=== PATIENT | male | born 1970 | race African-American/Black ===

== ENCOUNTER 2020-03-28 22:50 | Inpatient (IN) | payer SELFPAY ==
[~2020-03-28] VITALS: Ht 190.5 cm; Wt 97.5 kg
[2020-03-28] MEDS ORDERED: ALBUTEROL (0.083%) 2.5MG/3ML NEB HHN STA (22:57)
[2020-03-28] MEDS ORDERED: IPRATROPIUM BROMIDE (0.02%) 0.5MG/2.5ML NEB HHN STA (22:57)
[2020-03-28] MEDS ORDERED: FUROSEMIDE 40MG/4ML VIAL IV ONE (23:00)
[2020-03-28] MEDS ORDERED: METHYLPREDNISOLONE SOD SUCC 125 MG/2 ML VIAL IV STA (23:34)
[2020-03-28] MEDS ORDERED: NITROGLYCERIN 50MG PREMIX 250 ML IV ONE (23:34)
[2020-03-28] MEDS ORDERED: MAGNESIUM 2 G PREMIX 50 ML IV ONE (23:45)
[2020-03-28] MEDS ORDERED: TERBUTALINE SULFATE 1MG/ML VIAL SUBCUT ONE (23:45)
[2020-03-28 23:49] LABS: CHLORIDE 104 mEq/L (98-107)
[2020-03-28 23:51] LABS: BASOPHILS % 1.1 % (0.0-2.0); HEMATOCRIT. 46.8 % (42.0-52.0); HEMOGLOBIN. 15.2 g/dL (14.0-18.0); LYMPHOCYTES % 34.3 % (20.0-50.0); MEAN CORPUSCULAR HEMOGLOBIN 30.6 pg (28.0-32.0); MEAN CORPUSCULAR VOLUME 94.1 fL (80.0-94.0); MEAN PLATELET VOLUME 9.8 fl (7.4-10.4); MONOCYTES % 5.9 % (2.0-8.0); NEUTROPHILS % 53.7 % (40.0-76.0); PLATELET 247 x1000/uL (130-400); RED BLOOD CELL COUNT 4.98 mill/uL (4.7-6.1); RED CELL DISTRIBUTION WIDTH 15.2 % (11.6-14.6)
[2020-03-28 23:54] LABS: INR 0.9
[2020-03-29] VITALS (34 sets, daily range): BP systolic 139–191; BP diastolic 79–120
[2020-03-29] MEDS ORDERED: CEFTRIAXONE 1 G PREMIX 50 ML IV NR (00:30)
[2020-03-29] MEDS ORDERED: ASPIRIN 325MG EC TABLET PO NR (00:30)
[2020-03-29] MEDS ORDERED: FUROSEMIDE 40MG/4ML VIAL IVP ONE (01:00)
[2020-03-29 01:03] LABS: CLARITY URINE CLEAR (CLEAR); COLOR URINE YELLOW (YELLOW); KETONES URINE NEGATIVE (NEGATIVE); LEUKOCYTE ESTERASE URINE NEGATIVE (NEGATIVE); NITRITE URINE NEGATIVE (NEGATIVE); OCCULT BLOOD URINE 1+ (NEGATIVE); PH URINE 6.5 (4.5-8.0); PROTEIN URINE 3+ (NEGATIVE); SPECIFIC GRAVITY URINE 1.014 (1.005-1.030); UROBILINOGEN URINE 0.2 E.U./dL (0.2-1.0)
[2020-03-29 01:20] LABS: *AMPHETAMINES SCREEN URINE NEGATIVE (NEGATIVE); *BARBITURATES SCREEN URINE NEGATIVE (NEGATIVE); *BENZODIAZEPINES SCREEN URINE NEGATIVE (NEGATIVE); *COCAINE SCREEN URINE NEGATIVE (NEGATIVE); METHADONE URINE SCREEN NEGATIVE (NEGATIVE); OPIATES URINE SCREEN NEGATIVE (NEGATIVE)
[2020-03-29 01:21] LABS: CANNABINOID URINE SCREEN PRESUMTIVE POSITIVE (NEGATIVE); PHENCYCLIDINE URINE SCREEN NEGATIVE (NEGATIVE)
[2020-03-29] MEDS ORDERED: FUROSEMIDE 40MG/4ML VIAL IVP SCH (09:00)
[2020-03-29 09:34] LABS: BG CARBOXYHEMOGLOBIN 0.5 % (0.5-1.5); BG DEOXYHEMOGLOBIN 2.2 % (0.0-5.0); BG HCO3 ACT 28.2 mmol/L (22.0-26.0); BG METHEMOGLOBIN 0.6 % (0.0-1.5); BG OXYGEN SATURATION 97.8 % (92.0-98.5); BG OXYHEMOGLOBIN 96.7 % (94.0-97.0); BG PCO2 41.1 mmHg (35.0-45.0); BG PH 7.455 (7.350-7.450); BG PO2 101.6 mmHg (75.0-100.0); BG SAMPLE SITE RIGHT RADIAL; BG TOTAL HEMOGLOBIN 14.2 g/dL (12.0-18.0); BG VENT MODE MASK - NRB
[2020-03-29] MEDS: NITROGLYCERIN 50MG PREMIX 250 ML IV PRN ×4 (09:36→22:21)
[2020-03-29] MEDS ORDERED: AMLODIPINE 10MG TABLET PO SCH (10:00)
[2020-03-29 10:17] LABS: HEMATOCRIT. 43.5 % (42.0-52.0); HEMOGLOBIN. 14.5 g/dL (14.0-18.0); MEAN CORPUSCULAR HEMOGLOBIN 30.5 pg (28.0-32.0); MEAN CORPUSCULAR VOLUME 91.7 fL (80.0-94.0); MEAN PLATELET VOLUME 8.9 fl (7.4-10.4); PLATELET 212 x1000/uL (130-400); RED BLOOD CELL COUNT 4.74 mill/uL (4.7-6.1); RED CELL DISTRIBUTION WIDTH 14.9 % (11.6-14.6)
[2020-03-29 10:22] LABS: CHLORIDE 102 mEq/L (98-107)
[2020-03-29 10:48] LABS: PLATELET ESTIMATE NORMAL
[2020-03-29] MEDS ORDERED: POTASSIUM CHLORIDE 20MEQ TABLET SR PO SCH ×2 (11:15→15:00)
[2020-03-29] MEDS: SPIRONOLACTONE 50MG TABLET PO SCH ×2 (11:37→21:20)
[2020-03-29 12:11] LABS: HEPATITIS B SURFACE ANTIGEN NEGATIVE
[2020-03-29 12:41] LABS: HEPATITIS A AB IGM NEGATIVE (NEGATIVE)
[2020-03-29] MEDS ORDERED: LIDOCAINE HCL/PF 1% 2ML VIAL ONE (12:49)
[2020-03-29] MEDS: FUROSEMIDE 40MG/4ML VIAL IVP SCH (16:38)
[2020-03-29] MEDS ORDERED: HYDRALAZINE HCL 100MG TABLET PO NR (17:00)
[2020-03-29] MEDS ORDERED: DEXTROSE 50% WATER 50ML SYRINGE IV PRN (17:00)
[2020-03-29] MEDS ORDERED: ASPIRIN 81MG TABLET PO NR (17:00)
[2020-03-29] MEDS ORDERED: INSULIN LISPRO 100 UNITS/ML SUBCUT SCH (17:50)
[2020-03-29] MEDS: BLOOD SUGAR DIAGNOSTIC STRIP TEST SCH ×2 (18:15→21:20)
[2020-03-29] MEDS: INSULIN LISPRO 100 UNITS/ML SUBCUT SCH ×2 (18:15→21:00)
[2020-03-29] MEDS ORDERED: CEFTRIAXONE 1 G PREMIX 50 ML IV SCH (21:00)
[2020-03-29] MEDS: NIFEDIPINE XL 60MG TAB PO SCH (21:20)
[2020-03-29] MEDS: CEFTRIAXONE 1 G PREMIX 50 ML IV SCH (21:21)
[2020-03-30] VITALS (82 sets, daily range): BP systolic 129–185; BP diastolic 64–144
[2020-03-30] MEDS: NITROGLYCERIN 50MG PREMIX 250 ML IV PRN ×2 (02:34→08:37)
[2020-03-30 06:03] LABS: HEMATOCRIT. 40.7 % (42.0-52.0); HEMOGLOBIN. 13.8 g/dL (14.0-18.0); MEAN CORPUSCULAR HEMOGLOBIN 30.5 pg (28.0-32.0); MEAN PLATELET VOLUME 8.9 fl (7.4-10.4); PLATELET 213 x1000/uL (130-400); RED BLOOD CELL COUNT 4.52 mill/uL (4.7-6.1); RED CELL DISTRIBUTION WIDTH 14.6 % (11.6-14.6)
[2020-03-30 06:11] LABS: CHLORIDE 102 mEq/L (98-107)
[2020-03-30 06:17] LABS: PHOSPHORUS 2.5 mg/dL (2.5-4.9)
[2020-03-30] MEDS: FUROSEMIDE 40MG/4ML VIAL IVP SCH (07:09)
[2020-03-30] MEDS: INSULIN LISPRO 100 UNITS/ML SUBCUT SCH ×3 (08:20→21:00)
[2020-03-30] MEDS: BLOOD SUGAR DIAGNOSTIC STRIP TEST SCH ×4 (08:47→21:00)
[2020-03-30] MEDS: POTASSIUM CHLORIDE 20MEQ TABLET SR PO SCH ×2 (08:48→10:13)
[2020-03-30] MEDS: NIFEDIPINE XL 60MG TAB PO SCH ×2 (08:49→20:59)
[2020-03-30] MEDS: SPIRONOLACTONE 50MG TABLET PO SCH ×2 (08:49→21:01)
[2020-03-30] MEDS: ASPIRIN 81MG TABLET PO SCH (08:49)
[2020-03-30 09:00] LABS: PLATELET ESTIMATE NORMAL
[2020-03-30] MEDS ORDERED: HYDRALAZINE HCL 100MG TABLET PO SCH (09:00)
[2020-03-30] MEDS: MINOXIDIL 2.5MG TABLET PO SCH ×2 (10:13→21:00)
[2020-03-30] MEDS: CARVEDILOL 12.5MG TABLET PO SCH ×2 (10:13→21:00)
[2020-03-30] MEDS: AZITHROMYCIN 250 MG TABLET PO SCH (10:59)
[2020-03-30] MEDS: FAMOTIDINE 20MG TABLET PO SCH (14:16)
[2020-03-30] MEDS ORDERED: POTASSIUM CHLORIDE 20MEQ TABLET SR PO NR (16:00)
[2020-03-30] MEDS: CEFTRIAXONE 1 G PREMIX 50 ML IV SCH (20:58)
[2020-03-31] VITALS (47 sets, daily range): BP systolic 75–185; BP diastolic 28–120
[2020-03-31 05:51] LABS: BASOPHILS % 0.8 % (0.0-2.0); EOSINOPHILS % 0.7 % (0.0-5.0); HEMATOCRIT. 45.3 % (42.0-52.0); HEMOGLOBIN. 15.1 g/dL (14.0-18.0); LYMPHOCYTES % 12.9 % (20.0-50.0); MEAN CORPUSCULAR HEMOGLOBIN 30.4 pg (28.0-32.0); MEAN CORPUSCULAR VOLUME 91.4 fL (80.0-94.0); MONOCYTES % 8.5 % (2.0-8.0); NEUTROPHILS % 77.1 % (40.0-76.0); PLATELET 229 x1000/uL (130-400); RED BLOOD CELL COUNT 4.95 mill/uL (4.7-6.1); RED CELL DISTRIBUTION WIDTH 14.8 % (11.6-14.6)
[2020-03-31 05:58] LABS: CHLORIDE 105 mEq/L (98-107)
[2020-03-31 06:06] LABS: PHOSPHORUS 2.8 mg/dL (2.5-4.9)
[2020-03-31] MEDS: FAMOTIDINE 20MG TABLET PO SCH (09:00)
[2020-03-31] MEDS: ASPIRIN 81MG TABLET PO SCH (09:01)
[2020-03-31] MEDS: AZITHROMYCIN 250 MG TABLET PO SCH (09:01)
[2020-03-31] MEDS: CARVEDILOL 12.5MG TABLET PO SCH ×2 (09:02→20:44)
[2020-03-31] MEDS: MINOXIDIL 2.5MG TABLET PO SCH ×2 (09:02→20:45)
[2020-03-31] MEDS: NIFEDIPINE XL 60MG TAB PO SCH ×2 (09:11→21:00)
[2020-03-31] MEDS: SPIRONOLACTONE 50MG TABLET PO SCH ×2 (09:11→20:45)
[2020-03-31] MEDS ORDERED: CLONIDINE 0.1MG TABLET PO PRN (09:15)
[2020-03-31] MEDS: LOSARTAN POTASSIUM 50 MG TABLET PO SCH (11:35)
[2020-03-31] MEDS ORDERED: CLONIDINE 0.1MG TABLET PO SCH ×2 (14:00→21:00)
[2020-03-31] MEDS: HYDRALAZINE HCL 50MG TABLET PO SCH ×2 (14:06→22:10)
[2020-03-31] MEDS: CEFTRIAXONE 1 G PREMIX 50 ML IV SCH (20:46)
[2020-03-31] MEDS ORDERED: ALD50 PO (20:55)
[2020-03-31] MEDS ORDERED: FAMO20TA8 PO (20:55)
[2020-03-31] MEDS ORDERED: NIFE-32 PO (20:55)
[2020-03-31] MEDS ORDERED: MINO2.5T19 PO (20:55)
[2020-03-31] MEDS ORDERED: LOSA50TA3 PO (20:55)
[2020-03-31] MEDS ORDERED: ASPI-1160 PO (20:55)
[2020-03-31] MEDS ORDERED: HYDR-4135 PO (20:55)
[2020-04-01 00:18] VITALS: BP 130/61
[2020-04-01 04:00] VITALS: BP 117/83
[2020-04-01] MEDS: HYDRALAZINE HCL 50MG TABLET PO SCH ×3 (05:46→13:52)
[2020-04-01 06:51] LABS: BASOPHILS % 0.9 % (0.0-2.0); EOSINOPHILS % 1.5 % (0.0-5.0); HEMATOCRIT. 44.4 % (42.0-52.0); HEMOGLOBIN. 15.2 g/dL (14.0-18.0); LYMPHOCYTES % 21.3 % (20.0-50.0); MEAN CORPUSCULAR HEMOGLOBIN 30.9 pg (28.0-32.0); MEAN CORPUSCULAR VOLUME 90.5 fL (80.0-94.0); MEAN PLATELET VOLUME 9.3 fl (7.4-10.4); MONOCYTES % 8.6 % (2.0-8.0); NEUTROPHILS % 67.7 % (40.0-76.0); PLATELET 212 x1000/uL (130-400); RED BLOOD CELL COUNT 4.91 mill/uL (4.7-6.1); RED CELL DISTRIBUTION WIDTH 14.4 % (11.6-14.6)
[2020-04-01 07:05] LABS: PHOSPHORUS 3.9 mg/dL (2.5-4.9)
[2020-04-01 08:00] VITALS: BP 123/87
[2020-04-01] MEDS: AZITHROMYCIN 250 MG TABLET PO SCH (08:51)
[2020-04-01] MEDS: FAMOTIDINE 20MG TABLET PO SCH (08:51)
[2020-04-01] MEDS: SPIRONOLACTONE 50MG TABLET PO SCH (08:51)
[2020-04-01] MEDS: ASPIRIN 81MG TABLET PO SCH (08:51)
[2020-04-01] MEDS: LOSARTAN POTASSIUM 50 MG TABLET PO SCH (08:59)
[2020-04-01] MEDS: CARVEDILOL 12.5MG TABLET PO SCH (08:59)
[2020-04-01] MEDS: NIFEDIPINE XL 60MG TAB PO SCH (09:00)
[2020-04-01] MEDS ORDERED: POTASSIUM CHLORIDE 20MEQ TABLET SR PO SCH (09:00)
[2020-04-01 09:06] LABS: GLOMERULAR BASEMENT MEMB AB 15 units (0-20)
[2020-04-01 12:00] VITALS: BP 135/99
[2020-04-01 13:06] LABS: ATYPICAL P-ANCA <1:20 titer (Neg:<1:20); CYTOPLASMIC C-ANCA <1:20 titer (Neg:<1:20); PERINUCLEAR P-ANCA <1:20 titer (Neg:<1:20)
[2020-04-01 14:08] LABS: ANTI-MYELOPEROXIDASE AB < 9.0 U/mL (0.0-9.0); ANTI-PROTEINASE 3 ABS < 3.5 U/mL (0.0-3.5)
[2020-04-01 14:12] VITALS: BP 135/99
== END 2020-04-01 15:15 | disposition home or self-care (01) | DRG 194 ==
LOC: ER 22:50 → EDBEDREQSVC 03-29 09:14 → ENRESERV 03-29 13:54 → CVICU 03-29 16:03 → 5WST 04-01 01:34
PROVIDERS: ADMIT Family Medicine; ATTEND Family Medicine
PROC: 5A09357 Assistance with Respiratory Ventilation, Less than 24 Consecutive Hours, Continuous Positive Airway Pressure (ICD-10-PCS; principal; 2020-03-28)
DX: I13.0 Hypertensive heart and chronic kidney disease with heart failure and stage 1 through stage 4 chronic kidney disease, or unspecified chronic kidney disease (principal); J96.01 Acute respiratory failure with hypoxia; J18.9 Pneumonia, unspecified organism; E87.4 Mixed disorder of acid-base balance; E11.22 Type 2 diabetes mellitus with diabetic chronic kidney disease; I50.21 Acute systolic (congestive) heart failure; N17.9 Acute kidney failure, unspecified; I42.9 Cardiomyopathy, unspecified; E87.6 Hypokalemia; F12.90 Cannabis use, unspecified, uncomplicated; F17.210 Nicotine dependence, cigarettes, uncomplicated; I16.0 Hypertensive urgency; M19.90 Unspecified osteoarthritis, unspecified site; N18.9 Chronic kidney disease, unspecified; Z96.653 Presence of artificial knee joint, bilateral; E11.65 Type 2 diabetes mellitus with hyperglycemia; N05.9 Unspecified nephritic syndrome with unspecified morphologic changes; Z20.828 Contact with and (suspected) exposure to other viral communicable diseases; Z79.82 Long term (current) use of aspirin; Z79.899 Other long term (current) drug therapy; Z82.49 Family history of ischemic heart disease and other diseases of the circulatory system; Z83.3 Family history of diabetes mellitus; Z91.14 Patient's other noncompliance with medication regimen; Z84.1 Family history of disorders of kidney and ureter; Z91.19 Patient's noncompliance with other medical treatment and regimen
CPT/HCPCS: 36415; 36600; 71045; 71046; 80048; 80053; 80061; 80305; 81003; 82375; 82570; 82805; 82962; 83036; 83520; 83605; 83735; 83880; 84100; 84145; 84156; 84443; 84484; 85025; 86256; 86705; 86709; 86803; 87340; 93005; 93306; 93970; 99291; J0696; J1940; J2930; J3105; J3475; J3490; U0003-CS

== ENCOUNTER 2020-07-13 08:29 | Inpatient (IN) | payer MEDICAID, OTHER ==
[~2020-07-13] VITALS: Ht 193 cm; Wt 91.6 kg
[~2020-07-13 08:29] MED LIST: ALD50 PO; ASPI-1160 PO; FAMO20TA8 PO; HYDR-4135 PO; LOSA50TA3 PO; MINO2.5T19 PO; NIFE-32 PO
[2020-07-13] MEDS ORDERED: MORPHINE SULFATE 4 MG/ML CPJ (NOT FOR IM USE) IV STA (08:38)
[2020-07-13 09:31] LABS: BASOPHILS % 0.4 % (0.0-2.0); EOSINOPHILS % 1.6 % (0.0-5.0); HEMATOCRIT. 43.7 % (42.0-52.0); HEMOGLOBIN. 14.6 g/dL (14.0-18.0); LYMPHOCYTES % 11.5 % (20.0-50.0); MEAN CORPUSCULAR HEMOGLOBIN 30.5 pg (28.0-32.0); MEAN CORPUSCULAR VOLUME 91.3 fL (80.0-94.0); MONOCYTES % 6.4 % (2.0-8.0); NEUTROPHILS % 80.1 % (40.0-76.0); PLATELET 183 x1000/uL (130-400); RED BLOOD CELL COUNT 4.78 mill/uL (4.7-6.1); RED CELL DISTRIBUTION WIDTH 15.1 % (11.6-14.6)
[2020-07-13 09:34] LABS: CHLORIDE 104 mEq/L (98-107)
[2020-07-13 09:37] LABS: PROTHROMBIN TIME 10.9 sec (9.6-11.0)
[2020-07-13 10:13] LABS: CLARITY URINE CLEAR (CLEAR); COLOR URINE YELLOW (YELLOW); KETONES URINE NEGATIVE (NEGATIVE); LEUKOCYTE ESTERASE URINE NEGATIVE (NEGATIVE); NITRITE URINE NEGATIVE (NEGATIVE); OCCULT BLOOD URINE 1+ (NEGATIVE); PROTEIN URINE 3+ (NEGATIVE); SPECIFIC GRAVITY URINE 1.014 (1.005-1.030); UROBILINOGEN URINE 0.2 E.U./dL (0.2-1.0)
[2020-07-13] MEDS ORDERED: FAMOTIDINE 20MG/2ML VIAL IV STA (10:35)
[2020-07-13] MEDS ORDERED: MORPHINE SULFATE 4 MG/ML CPJ (NOT FOR IM USE) IV ONE (10:45)
[2020-07-13] MEDS ORDERED: LACTULOSE 20G/30ML UDC PO ONE (11:00)
[2020-07-13] MEDS ORDERED: POTASSIUM CHLORIDE 20MEQ TABLET SR PO ONE (11:00)
[2020-07-13] MEDS ORDERED: HYDRALAZINE HCL 25MG TABLET PO SCH (12:20)
[2020-07-13] MEDS ORDERED: HYDRALAZINE HCL 50MG TABLET PO ONE (12:30)
[2020-07-13] MEDS ORDERED: KETOROLAC 30MG/ML VIAL IV SCH (12:30)
[2020-07-13] MEDS ORDERED: KETOROLAC 30MG/ML VIAL IV ONE (12:30)
[2020-07-13] MEDS ORDERED: DOCUSATE SODIUM 100MG CAPSULE PO PRN (14:00)
[2020-07-13] MEDS ORDERED: IPRATROPIUM/ALBUTEROL 0.5-3(2.5)MG/3ML NEB NEB PRN (14:00)
[2020-07-13] MEDS ORDERED: ACETAMINOPHEN 325MG TABLET PO PRN ×2 (14:00)
[2020-07-13] MEDS ORDERED: GUAIFENESIN 200MG/10ML SUGAR FREE UDC PO PRN (14:00)
[2020-07-13] MEDS ORDERED: NITROGLYCERIN 0.4MG TABLET SL SL PRN (14:00)
[2020-07-13] MEDS ORDERED: ONDANSETRON HCL 4MG/2ML INJ IV PRN (14:00)
[2020-07-13] MEDS ORDERED: MAGNESIUM/ALUMINUM HYDROXIDE/SIMETHICONE 30ML UDC PO PRN (14:00)
[2020-07-13] MEDS ORDERED: POTASSIUM CHLORIDE 20MEQ TABLET SR PO SCH (14:00)
[2020-07-13] MEDS ORDERED: CLONIDINE 0.1MG TABLET PO PRN (14:00)
[2020-07-13] MEDS: HYDRALAZINE HCL 25MG TABLET PO SCH ×2 (15:33→23:45)
[2020-07-13] MEDS: ENOXAPARIN 40MG/0.4ML SYR SUBCUT SCH (15:34)
[2020-07-13] MEDS: MINOXIDIL 2.5MG TABLET PO SCH (16:46)
[2020-07-13] MEDS ORDERED: MINOXIDIL 2.5MG TABLET PO NR (18:25)
[2020-07-13] MEDS: CLONIDINE 0.2MG TABLET PO PRN (19:04)
[2020-07-13] MEDS: FUROSEMIDE 40MG/4ML VIAL IVP SCH (19:13)
[2020-07-13] MEDS: LACTULOSE 20G/30ML UDC PO SCH ×2 (20:00→23:45)
[2020-07-13] MEDS ORDERED: ZOLPIDEM TARTRATE 5MG TABLET PO PRN (21:00)
[2020-07-13] MEDS: METOPROLOL TARTRATE 25MG TABLET PO SCH (21:45)
[2020-07-13] MEDS: FAMOTIDINE 20MG TABLET PO SCH (21:45)
[2020-07-13] MEDS: ASCORBIC ACID 500 MG TABLET PO SCH (21:45)
[2020-07-13] MEDS: SPIRONOLACTONE 25MG TABLET PO SCH (21:45)
[2020-07-13 22:23] LABS: CREATINE KINASE MB FRACTION 15.2 ng/mL (0.5-3.6)
[2020-07-14] VITALS (7 sets, daily range): BP systolic 112–180; BP diastolic 71–90
[2020-07-14] MEDS: CLONIDINE 0.2MG TABLET PO PRN (01:15)
[2020-07-14] MEDS: LACTULOSE 20G/30ML UDC PO SCH ×6 (04:00→20:00)
[2020-07-14] MEDS: HYDRALAZINE HCL 25MG TABLET PO SCH ×3 (06:18→21:19)
[2020-07-14] MEDS: FUROSEMIDE 40MG/4ML VIAL IVP SCH (06:18)
[2020-07-14] MEDS: MINOXIDIL 2.5MG TABLET PO SCH (09:38)
[2020-07-14] MEDS: ZINC SULFATE 220 MG ( 50 ) CAPSULE PO SCH (09:39)
[2020-07-14] MEDS: SPIRONOLACTONE 25MG TABLET PO SCH ×2 (09:39→20:27)
[2020-07-14] MEDS: ASPIRIN 325MG EC TABLET PO SCH (09:39)
[2020-07-14] MEDS: METOPROLOL TARTRATE 25MG TABLET PO SCH (09:40)
[2020-07-14] MEDS: AMLODIPINE 10MG TABLET PO SCH (09:40)
[2020-07-14] MEDS: ASCORBIC ACID 500 MG TABLET PO SCH ×2 (09:40→20:27)
[2020-07-14 11:09] LABS: BASOPHILS % 0.3 % (0.0-2.0); EOSINOPHILS % 0.1 % (0.0-5.0); HEMATOCRIT. 42.2 % (42.0-52.0); LYMPHOCYTES % 8.8 % (20.0-50.0); MEAN CORPUSCULAR HEMOGLOBIN 30.2 pg (28.0-32.0); MEAN CORPUSCULAR VOLUME 90.8 fL (80.0-94.0); MEAN PLATELET VOLUME 8.5 fl (7.4-10.4); MONOCYTES % 10.1 % (2.0-8.0); NEUTROPHILS % 80.7 % (40.0-76.0); PLATELET 164 x1000/uL (130-400); RED BLOOD CELL COUNT 4.65 mill/uL (4.7-6.1); RED CELL DISTRIBUTION WIDTH 15.2 % (11.6-14.6)
[2020-07-14 11:16] LABS: CHLORIDE 101 mEq/L (98-107)
[2020-07-14 11:29] LABS: PHOSPHORUS 2.4 mg/dL (2.5-4.9)
[2020-07-14 11:31] LABS: CREATINE KINASE 764 IU/L (39-308)
[2020-07-14 11:34] LABS: CREATINE KINASE MB FRACTION 5.7 ng/mL (0.5-3.6)
[2020-07-14] MEDS: CARVEDILOL 12.5MG TABLET PO SCH ×2 (11:55→20:27)
[2020-07-14] MEDS: ENOXAPARIN 40MG/0.4ML SYR SUBCUT SCH (14:12)
[2020-07-14] MEDS: KETOROLAC 15MG/ML VIAL IV PRN (20:08)
[2020-07-14] MEDS: FAMOTIDINE 20MG TABLET PO SCH (20:27)
[2020-07-15] VITALS: BP 149/73
[2020-07-15 02:54] LABS: *AMPHETAMINES SCREEN URINE NEGATIVE (NEGATIVE); *BARBITURATES SCREEN URINE NEGATIVE (NEGATIVE); *BENZODIAZEPINES SCREEN URINE NEGATIVE (NEGATIVE); *COCAINE SCREEN URINE NEGATIVE (NEGATIVE)
[2020-07-15 02:55] LABS: CANNABINOID URINE SCREEN PRESUMTIVE POSITIVE (NEGATIVE); METHADONE URINE SCREEN NEGATIVE (NEGATIVE); OPIATES URINE SCREEN PRESUMTIVE POSITIVE (NEGATIVE); PHENCYCLIDINE URINE SCREEN NEGATIVE (NEGATIVE)
[2020-07-15] MEDS: LACTULOSE 20G/30ML UDC PO SCH ×4 (03:30→12:00)
[2020-07-15 04:00] VITALS: BP 193/123
[2020-07-15] MEDS: CLONIDINE 0.2MG TABLET PO PRN (04:19)
[2020-07-15] MEDS: KETOROLAC 15MG/ML VIAL IV PRN ×2 (04:25→19:50)
[2020-07-15] MEDS: HYDRALAZINE HCL 25MG TABLET PO SCH ×3 (05:35→21:40)
[2020-07-15 06:28] LABS: CHLORIDE 100 mEq/L (98-107)
[2020-07-15 06:39] LABS: PHOSPHORUS 2.7 mg/dL (2.5-4.9)
[2020-07-15 06:41] LABS: HEMATOCRIT. 39.9 % (42.0-52.0); HEMOGLOBIN. 13.3 g/dL (14.0-18.0); MEAN CORPUSCULAR HEMOGLOBIN 30.4 pg (28.0-32.0); MEAN CORPUSCULAR VOLUME 91.3 fL (80.0-94.0); PLATELET 139 x1000/uL (130-400); RED BLOOD CELL COUNT 4.37 mill/uL (4.7-6.1)
[2020-07-15 08:00] VITALS: BP 150/82
[2020-07-15] MEDS ORDERED: POTASSIUM CHLORIDE 20MEQ TABLET SR PO NR ×2 (08:00→22:00)
[2020-07-15] MEDS ORDERED: POTASSIUM CHLORIDE INJ 40 MEQ in DEXT 5% WATER 250 ML IV NR (09:00)
[2020-07-15] MEDS: AMLODIPINE 10MG TABLET PO SCH (09:22)
[2020-07-15] MEDS: CARVEDILOL 12.5MG TABLET PO SCH ×2 (09:23→21:42)
[2020-07-15] MEDS: ASPIRIN 325MG EC TABLET PO SCH (09:24)
[2020-07-15] MEDS: ZINC SULFATE 220 MG ( 50 ) CAPSULE PO SCH (09:24)
[2020-07-15] MEDS: ASCORBIC ACID 500 MG TABLET PO SCH ×2 (09:24→21:41)
[2020-07-15] MEDS: SPIRONOLACTONE 25MG TABLET PO SCH ×2 (09:24→21:41)
[2020-07-15] MEDS: MINOXIDIL 2.5MG TABLET PO SCH (09:25)
[2020-07-15 12:00] VITALS: BP 134/64
[2020-07-15 16:01] VITALS: BP 139/76
[2020-07-15] MEDS: ENOXAPARIN 40MG/0.4ML SYR SUBCUT SCH (16:10)
[2020-07-15 16:22] LABS: PLATELET ESTIMATE NORMAL
[2020-07-15 20:00] VITALS: BP 137/65
[2020-07-15] MEDS: FAMOTIDINE 20MG TABLET PO SCH (21:41)
[2020-07-16] VITALS: BP 130/93
[2020-07-16 04:00] VITALS: BP 170/89
[2020-07-16] MEDS: HYDRALAZINE HCL 25MG TABLET PO SCH ×2 (06:10→13:16)
[2020-07-16 06:36] LABS: BASOPHILS % 0.4 % (0.0-2.0); EOSINOPHILS % 0.5 % (0.0-5.0); HEMATOCRIT. 40.3 % (42.0-52.0); HEMOGLOBIN. 13.5 g/dL (14.0-18.0); LYMPHOCYTES % 10.5 % (20.0-50.0); MEAN CORPUSCULAR HEMOGLOBIN 30.4 pg (28.0-32.0); MEAN CORPUSCULAR VOLUME 90.8 fL (80.0-94.0); MEAN PLATELET VOLUME 9.2 fl (7.4-10.4); MONOCYTES % 11.6 % (2.0-8.0); PLATELET 135 x1000/uL (130-400); RED BLOOD CELL COUNT 4.44 mill/uL (4.7-6.1); RED CELL DISTRIBUTION WIDTH 14.6 % (11.6-14.6)
[2020-07-16 06:41] LABS: CHLORIDE 101 mEq/L (98-107)
[2020-07-16 06:51] LABS: PHOSPHORUS 2.3 mg/dL (2.5-4.9)
[2020-07-16 07:54] VITALS: BP 159/87
[2020-07-16] MEDS ORDERED: POTASSIUM CHLORIDE 20MEQ TABLET SR PO SCH (08:15)
[2020-07-16] MEDS: ZINC SULFATE 220 MG ( 50 ) CAPSULE PO SCH (08:16)
[2020-07-16] MEDS: CARVEDILOL 12.5MG TABLET PO SCH (08:17)
[2020-07-16] MEDS: AMLODIPINE 10MG TABLET PO SCH (08:17)
[2020-07-16] MEDS: ASPIRIN 325MG EC TABLET PO SCH (08:17)
[2020-07-16] MEDS: SPIRONOLACTONE 25MG TABLET PO SCH (08:17)
[2020-07-16] MEDS: ASCORBIC ACID 500 MG TABLET PO SCH (08:17)
[2020-07-16] MEDS: MINOXIDIL 2.5MG TABLET PO SCH (08:18)
[2020-07-16] MEDS: KETOROLAC 15MG/ML VIAL IV PRN (08:25)
[2020-07-16 12:00] VITALS: BP 157/93
[2020-07-16] MEDS: ENOXAPARIN 40MG/0.4ML SYR SUBCUT SCH (12:55)
[2020-07-16 13:04] VITALS: BP 157/93
== END 2020-07-16 13:20 | disposition home or self-care (01) | DRG 203 ==
LOC: ER 08:46 → 8WST 13:17 → UNDOADMIN 13:17 → EDBEDREQTM 13:18 → EDBEDREQ 13:18 → ENRESERV 15:05
PROVIDERS: ADMIT Internal Medicine; ATTEND Internal Medicine
DX: M94.0 Chondrocostal junction syndrome [Tietze] (principal); I16.1 Hypertensive emergency; J96.00 Acute respiratory failure, unspecified whether with hypoxia or hypercapnia; I50.43 Acute on chronic combined systolic (congestive) and diastolic (congestive) heart failure; I42.9 Cardiomyopathy, unspecified; K21.9 Gastro-esophageal reflux disease without esophagitis; K56.41 Fecal impaction; I13.0 Hypertensive heart and chronic kidney disease with heart failure and stage 1 through stage 4 chronic kidney disease, or unspecified chronic kidney disease; N17.0 Acute kidney failure with tubular necrosis; E87.6 Hypokalemia; D72.829 Elevated white blood cell count, unspecified; N18.9 Chronic kidney disease, unspecified; Z91.11 Patient's noncompliance with dietary regimen; Z91.14 Patient's other noncompliance with medication regimen; Z91.19 Patient's noncompliance with other medical treatment and regimen; Z79.82 Long term (current) use of aspirin; Z79.899 Other long term (current) drug therapy
CPT/HCPCS: 36415; 71045; 74176; 80053; 80061; 80305; 81003; 82550; 82553; 83036; 83735; 83880; 84100; 84132; 84484; 85025; 93005; 93970; 99285; J1650; J1885; J1940; J2270; J3480; J3490; J7060